=== PATIENT | male | born 1970 | race Two or more races ===

== ENCOUNTER 2022-08-04 13:41 | Emergency (ER) | payer SELFPAY ==
[~2022-08-04] VITALS: Ht 172.7 cm; Wt 90.9 kg
[2022-08-04] MEDS ORDERED: HYDROcodone-ACET 5/325MG TAB PO ONE (15:45)
[2022-08-04 16:31] VITALS: BP 171/105
[2022-08-04] MEDS ORDERED: METH-1182 PO (16:47)
[2022-08-04] MEDS ORDERED: IBUP-1454 PO (16:47)
[2022-08-04] MEDS ORDERED: LISI20TA56 PO (16:47)
== END 2022-08-04 17:48 | disposition home or self-care (01) ==
LOC: EDBD 13:41 → ER 13:41
DX: S61.217A Laceration without foreign body of left little finger without damage to nail, initial encounter (principal); I10 Essential (primary) hypertension; Z87.81 Personal history of (healed) traumatic fracture; Y04.0XXA Assault by unarmed brawl or fight, initial encounter; Y93.89 Activity, other specified; Y92.481 Parking lot as the place of occurrence of the external cause; Y99.8 Other external cause status
CPT/HCPCS: 12002; 72040